=== PATIENT | female | born 1980 | race Caucasian/White ===

== ENCOUNTER 2016-06-05 04:12 | Inpatient (IN) | payer OTHER ==
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
--- OUTSIDE RECORDS SUMMARY | 2016-06-05 04:17 | XMS REPORT | Continuity of Care Document ---
:1980 Author Organization [facility] [place] [address] Care Team Providers Name Role Phone Unavailable Primary Care Provider Unavailable Source Comments This disclosure is being made pursuant to the [employer] program and maynot contain all information available regarding this patient.[facility] Active Allergies and Adverse Reactions Not on File Current Medications Be aware that medications may not be up to date as of this document. Alwaysverify current medications with the patient. Not on file Active Problems Not on file Social History Tobacco Use Types Packs/Day Years Used Date Never Assessed Plan of Care Health Maintenance Due Date Last Done Comments Retired-Pertussis Vaccine Adult 2001 Retired-Tetanus Vaccine Adult 2001 Pap Smear 12/23/2003 Retired-INFLUENZA VACCINE 11/22/2014 Results from Last 3 Months Not on file
--- OUTSIDE RECORDS SUMMARY | 2016-06-05 08:10 | XMS REPORT | Continuity of Care Document ---
:1980 Author Organization [facility] [place] [address] Care Team Providers Name Role Phone Unavailable Primary Care Provider Unavailable Source Comments This disclosure is being made pursuant to the [employer] program and maynot contain all information available regarding this patient.[facility] Active Allergies and Adverse Reactions Not on [...]
--- OUTSIDE RECORDS SUMMARY | 2016-06-05 08:10 | XMS REPORT | Continuity of Care Document ---
:1980 Author Organization [facility] ([facility]) Address [address] [place] [address] Phone [phone] Care Team Providers Name Role Phone Provider, No-Primary Care Primary Care Provider Unavailable Source Comments This disclosure is being made pursuant to the Care Everywhere program, applicable federal and state laws, and may not contain all informaitonavailable regarding this patient.[facility] ([facility]) Active Allergies and Adverse Reactions Allergen Noted [...] total) by mouth at bedtime. Pump Set [facility] Breast Pump. 1 Each 0 11/23/2014 05/21/2016 Discontinued 1 Device Daily Active Problems Patient Care Coordination Note GOALS OF CARE AND TREATMENT PREFERENCES Diagnosis: Seizures with possible intentional overdose Prognosis: Fair Goal(s) of Care: cure and determine what is wrong Is the patient an inpatient? Yes. How did the team arrive at the current code status? Discussion with patient's Silverio [phone] Code status is: Full code Patient able to make own decisions?: No Decision-maker: Next of kin: Silverio [phone] Patient's Goals of Care and communication style [...] contact the transfusion medicine resident at pager #[phone] with questions. 08/24/2014 Anemia, unspecified 08/24/2014 Epilepsy [...] Recent Encounters Date Type Specialty Providers Description 06/05/2016 Hospital Encounter Patient Services 05/26/2016 Hospital Encounter Whit Alves, Dx: Abdominal Specialty PROJECT MANAGER/DESIGN MANAGER cramping (Primary Isaiah Gross, Dx) DO 05/22/2016 Office Visit Maternal Tete Vasquez Dx: Disorder of Medicine DO abdominal Balka, [place], CGC region, not applicable or unspecified fetus (Primary Dx) 05/22/2016 Hospital Encounter Obstetrics Tete Vasquez Dx: Abnormal DO ultrasonic finding on screening of mother 05/22/2016 Office Visit Maternal Tete Vasquez, Dx: Medicine DO abnormality affecting management of [...] Taken Blood Pressure 125/86 05/26/2016 12:16 PM MOLDED GOODS INSPECTOR TRIMMER Pulse 92 05/26/2016 12:16 PM MOLDED GOODS INSPECTOR TRIMMER Temperature 36.8 C (98.2 F) 05/26/2016 10:06 AM MOLDED GOODS INSPECTOR TRIMMER Respiratory Rate 16 05/26/2016 12:16 PM MOLDED GOODS INSPECTOR TRIMMER Height 1.626 m (5' 4") 05/22/2016 2:57 PM MOLDED GOODS INSPECTOR TRIMMER Weight 124.4 kg (274 lb 4 oz) 05/22/2016 2:57 PM MOLDED GOODS INSPECTOR TRIMMER Body Mass Index 47.05 05/22/2016 2:57 PM MOLDED GOODS INSPECTOR TRIMMER Oxygen Saturation 98% 05/26/2016 12:16 PM MOLDED GOODS INSPECTOR TRIMMER Plan of Care Date Type Specialty Providers Description 06/11/2016 Appointment Obstetrics Chief Comp: Patient Reported Reason For Visit 06/11/2016 Appointment Maternal Chief Comp: Patient Medicine Reported Reason For Visit 06/11/2016 Appointment Maternal [facility], [facility] New Chief Comp: Patient Medicine Patient Reported Reason For Visit 04/10/2017 Appointment Psychiatry Javed Olmstead, FELIX Chief Comp: Patient [address] [place] [address] Visit [phone] (Fax) Health Maintenance Due Date Last Done [...] Completed 07/11/2014 Results from Last 3 Months [facility] BAS[facility]OL[facility] (W/ CALCIUM TOTAL) (05/26/2016 10:35 AM) Component Value Range [facility] Sodium 135(L) 137-145 mmol/L [facility] Potassium 4.3 3.4-5.1 mmol/L [facility] Chloride 108(H) 98-107 mmol/L [facility] CO2 19(L) 20-30 mmol/L [facility] Glucose 86 60-110 mg/dL [facility] BUN 6(L) 7-17 mg/dL [facility] Creatinine 0.41(L) 0.70-1.25 mg/dL [facility] Calcium 8.3(L) 8.4-10.5 mg/dL [facility] Calculated GFR >90 >60 mL/min/1.73 m2 Specimen Blood [facility] CBC WITH DIFFERENTIAL (05/26/2016 10:35 AM) [...] % Basophils 0.2 0.0-2.0 % Specimen Blood SENIOR TECHNICAL PROJECT MANAGER/ DIAGNOSIS ULTRASOUND (05/22/2016 2:48 PM) Narrative Obstetric Ultrasound Report Detailed Survey Referral from: Dr. Umu walker [address] Department of Obstetrics & Gynecology [place], [id number] [facility] [id number] OB Clinic IVF/ Endocrine PATIENT INFORMATION: Name: NURIS HILARIO#: [id number] Age:35 y/oExam Date: 05/22/2016 :1980 Visit #: [...] 36 6/7 wks(61%) (83%) Femur: 66.8 mm34 7 wksAC:330.2 mm 37 0/7 wks(87%) (46%) EFW: 2887 gms6 lbs 6 oz (84%) Lat Ventricles: 3.4 mm Cisterna Magna: 9.0 mm Nasal Bone: Present-13.7 mmFetal Heart Rate: 161 bpm FL/AC:0.2HL/BPD: 0.65 FL/BPD: 0.74 Humerus:59.0 mm34 1 (53%) PRESENTATION/CORD/PLACENTA/FLUID/CERVIX: Presentation: Breech Umbilical Cord: 3 Vessel Cord.Normal insertion into the placenta. Placenta: Anterior Amniotic Fluid: Maximum Vertical Jxggog=955 mm.Subjective AF Volume: Moderately Increased.Assessment: polyhydramnios. (VYG=633 mm) ANATOMICAL SURVEY: Normal ------ Lateral Ventricles Cerebellum Cisterna Magna Profile Nose Lips Cervical Spine Thoracic Spine Lumbar Spine Sacrum Four Chamber ViewAortic Arch Cardiac Morrice Cardiac Position Heart Rate Cardiac Rhythm DiaphragmVentral [...] SVC: Suboptimal Cardiac Rhythm:Normal Pericardial Effusion: Absent BUILDING ENERGY RETROFIT TECHNICIAN FINDINGS: Ovaries:Left:Normal Right: Normal EFW Summary Table Exam DateFetus #EFW Percentile ------ - 05/22/16 [id number] % AMNIOTIC FLUID VOLUME: POLYHYDRAMNIOSTotal MEG: 305 [...] allowing us to care for your patient, Nuris Hilraio. As you know, she is a 35 y.o. currently at 34w5d gestation.She has been referred due to a abdominal mass.Her is complicated by borderline personality disorder, hypothyroidism and depression. She declined serum screening.She presents to the Diagnosis and Treatment Unit at the [facility] today for detailed anatomic survey and MFM [...] recommend that the patient transfer care to [facility] and deliver at [facility]. The patient is very disappointed that delivery is recommended at [facility]. It was a pleasure seeing your patient [...] Vasquez MD ([id number]) Dr. Rabia Orellana MD Rug Cutter: Sophy Terrell RDMS, RVT Procedure Note Omar, Incoming Imaging Results - FriMay 24, 2016 4:19 PM MOLDED GOODS INSPECTOR TRIMMER Obstetric Ultrasound Report Detailed Survey Referral from: Dr. Umu Aldana [facility] [address] Department of Obstetrics &[place] [address] [address] [place], [id number] OB Clinic IVF/ Endocrine PATIENT INFORMATION: Name: NURIS HILARIO MR#: [id number] Age: 35 y/o Exam Date: 05/22/2016 : [...] placenta. Placenta: Anterior Amniotic Fluid: Maximum Vertical Mkyiid=197 mm. Subjective AF Volume: Moderately Increased. Assessment: polyhydramnios. (RVL=878 mm) ANATOMICAL SURVEY: Normal ------ Lateral Ventricles Cerebellum Cisterna Magna Profile Nose Lips Cervical Spine Thoracic Spine Lumbar Spine Sacrum Four Chamber View Aortic Arch Cardiac Morrice Cardiac Position Heart Rate Cardiac Rhythm Diaphragm [...] Suboptimal Cardiac Rhythm: Normal Pericardial Effusion: Absent BUILDING ENERGY RETROFIT TECHNICIAN FINDINGS: Ovaries: Left: Normal Right: Normal EFW Summary Table Exam Date Fetus # EFW Percentile --------- ------- ---- 05/22/16 1 2887 84 % AMNIOTIC FLUID VOLUME: POLYHYDRAMNIOS Total [...] allowing us to care for your patient, Nuris Hilario. As you know, she is a 35 y.o. currently at 34w5d gestation.She has been referred due to a abdominal mass. Her is complicated by borderline personality disorder, hypothyroidism and depression. She declined serum screening. She presents to the Diagnosis and Treatment Unit at the [facility] today for detailed anatomic survey and MFM [...] recommend that the patient transfer care to [facility] and deliver at [facility]. The patient is very disappointed that delivery is recommended at [facility]. It was a pleasure seeing your patient [...] Vasquez MD ([id number]) Dr. Rabia Orellana MD Rug Cutter: Sophy Terrell RDMS, RVT
[2016-06-05] MEDS ORDERED: RINGERS SOLUTION,LACTATED 1,000 ML IV PRN (08:24)
[2016-06-05] MEDS ORDERED: RINGERS SOLUTION,LACTATED 1,000 ML IV ONE (08:24)
[2016-06-05] MEDS ORDERED: LIDOCAINE HCL 50 ML VIAL PERI PRN (08:24)
[2016-06-05] MEDS ORDERED: DEXTROSE 5%-LACTATED RINGERS 1,000 ML IV PRN (08:24)
[2016-06-05 08:55] LABS: Hematocrit 33.9 % (37.0-47.0); Mean Corpuscular Hgb Conc 32.4 g/dl (32-36); Mean Platelet Volume 9.7 fl (6.0-9.5); Neutrophil # 10.4 K/mm3 (1.3-6.0); Neutrophil % 64.2 % (42-75.0); Platelet Count 296 K/mm3 (150-450); Red Cell Distribution Width 15.1 % (11.5-14.0); White Blood Count 16.1 K/mm3 (4.0-10.5)
--- NOTE | 2016-06-05 09:03 | PN ---
Progess Note - Interim Narrative: 06/05/16 08:57 Subjective-complaining of pain 4 out of 10 with regular contractions Objective- SVE- 4/80/-2, bulging bag of water, cephalic FHTs- 150s, moderate variability, no decelerations [place]- every 2-3 minutes Assessment and plan- Labor-spontaneous, GBS status- negative Elevated blood pressures -obtain labs and monitor for signs and symptoms of preeclampsia or worsening blood pressures Continue current plan of care. Anticipate . Prepare for a hemorrhage and retained placenta.
[2016-06-05] MEDS ORDERED: BUPIVACAINE HCL/PF 30 ML VIAL ONE (09:08)
[2016-06-05 09:14] LABS: Albumin * 2.5 gm/dl (3.4-5.0); Anion Gap 14.7 mmol/L (6.8-13.8); BUN/Creatinine Ratio 15.6 (9.0-21.6); Bilirubin, Total 0.3 mg/dL (0.0-1.1); Ca. Corrected For Albumin 9.5 mg/dL (8.4-10.2); Calcium * 8.6 mg/dL (7.9-10.9); Carbon Dioxide 21.2 mmol/L (24-32.6); Potassium 3.9 mmol/L (3.4-4.6)
[2016-06-05] MEDS ORDERED: NALOXONE HCL 1 MG/1 ML SYRG IV PRN (09:35)
[2016-06-05] MEDS ORDERED: ONDANSETRON HCL/PF 2 MG/ML VIAL IV PRN (09:35)
[2016-06-05] MEDS ORDERED: BUPIVACAINE HCL/0.9 % NACL/PF 250 ML EP PRN (09:35)
[2016-06-05] MEDS ORDERED: BUPIVACAINE HCL/PF 30 ML VIAL EP ONE (09:35)
--- NOTE | 2016-06-05 09:44 | OR ---
Anesthesia Procedure Note - Anesthesia Procedure Note Date of Service: 06/05/16 Narrative: Vital Signs - Last Taken Temp 36.8 C 10/27/13 06:15 Pulse 74 06/05/16 09:37 Resp 18 06/05/16 09:37 BP 108/73 06/05/16 09:37 Pulse Ox 98 06/05/16 09:37 06/05/16 09:41 ANESTHESIA PROCEDURE NOTE Date of Procedure: 06/05/2016. Time of procedure: 1010.. Performed by: Pablito Mancuso CRNA Time Broker: None. Preprocedure diagnosis: Active labor. Post procedure diagnosis: Same. Procedure: Insertion of labor epidural. Indications: The patient is a 35 -year-old female in active labor requesting labor epidural for pain management. Findings: See below. Details of the procedure: The patient was placed in a sitting position. DuraPrep as well as Betadine swabs 3 was applied to the patient's back. Patient was then draped in a sterile fashion. Lidocaine 1% was infiltrated to the skin and subcutaneous tissues at the level of the L3 4 interspace. The epidural space was identified using a 18-gauge Tuohy needle with loss-of- resistance technique. Epidural catheter was inserted to a depth of 10 centimeters at skin. Negative test dose was elicited using 3 mL of 1.5% preservative-free lidocaine plus epinephrine 1 200,000. The epidural catheter was then taped and secured in place. A loading dose of 8 mL of 0.25% preservative-free bupivacaine was administered to the epidural catheter after negative aspiration for blood and CSF. EBL: Minimal. Fluids: N/A. Specimen: N/A. Post procedure condition: The patient tolerated the procedure well. No complications were noted. Thank you for this consultation. Pablito Mancuso CRNA
[2016-06-05] MEDS: OXYTOCIN/DEXTROSE 5%-WATER 30 UNITS/500 ML BAG IV ONE ×2 (10:09→17:06)
[2016-06-05] MEDS: MISOPROSTOL 200 MCG TABLET RC ONE ×2 (15:03→17:13)
[2016-06-05] MEDS ORDERED: oxyCODONE HCL/ACETAMINOPHEN 1 TAB TABLET PO PRN (15:23)
[2016-06-05] MEDS ORDERED: OXYTOCIN/DEXTROSE 5%-WATER 30 UNITS/500 ML BAG IV ONE (15:23)
[2016-06-05] MEDS ORDERED: BENZOCAINE/MENTHOL 81 SPRAY CAN TP PRN (15:23)
[2016-06-05] MEDS ORDERED: BISACODYL 10 MG SUPP.RECT RC PRN (15:23)
[2016-06-05] MEDS ORDERED: GLYCERIN/WITCH HAZEL LEAF 40 APPL BOX TP PRN (15:23)
[2016-06-05] MEDS ORDERED: HYDROCORTISONE 30 APPL TUBE TP PRN (15:23)
[2016-06-05] MEDS ORDERED: SENNOSIDES 8.6 MG TABLET PO PRN (15:23)
--- NOTE | 2016-06-05 15:46 | OR ---
Operative Report - Dictated Report Narrative: Spontaneous Vaginal Delivery Viable female with APGARS of 8 at 1 minute and 9 at 5 minutes. A copious amount of lightly meconium-stained fluid was noted during the labor and delivery. She delivered at 1455. Presentation was PAPO. Delivered after 2 pushes. A loose nuchal cord was reduced after delivery of the head. The right anterior shoulder delivered easily followed by the posterior shoulder and the remainder of the baby. The cord was then clamped and cut and the baby was taken to the warmer. Spontaneous cry was noted. The investor relations director arrived after approximately 1 minute. Weight: 7 pounds and 7 ounces or 3374 g Placenta was delivered spontaneously and intact. It appeared to be meconium- stained. No lacerations were noted. Estimated blood loss: 300 ml episodes of brisk bleeding were noted and Cytotec 1000 g was placed rectally Mother and baby tolerated delivery well.
[2016-06-05] MEDS: oxyCODONE HCL/ACETAMINOPHEN 1 TAB TABLET PO PRN ×2 (17:03→21:50)
[2016-06-05] MEDS: IBUPROFEN 800 MG TABLET PO PRN (17:04)
[2016-06-05] MEDS: DOCUSATE SODIUM 100 MG CAPSULE PO SCH (21:50)
[2016-06-06] MEDS: IBUPROFEN 800 MG TABLET PO PRN (04:24)
[2016-06-06] MEDS: oxyCODONE HCL/ACETAMINOPHEN 1 TAB TABLET PO PRN ×2 (04:24→08:52)
[2016-06-06 08:40] VITALS: BP 95/54
[2016-06-06] MEDS: DOCUSATE SODIUM 100 MG CAPSULE PO SCH (08:53)
--- NOTE | 2016-06-06 08:55 | PN ---
Progess Note - Interim Narrative: 06/06/16 08:39 progress note Subjective: The patient is doing well. She is ambulating, voiding, tolerating by mouth. She has minimal pain and moderate lochia. Objective: General: No acute distress Abdomen: Soft, nontender, fundus is firm just below the umbilicus Extremities: minimal edema, nontender to palpation Assessment and plan: day 1 Feeding: Pumping but plans to breast-feed when she is with her baby Pain: Controlled with by mouth medication control: None Discharge home so she can be with her baby in [place]
== END 2016-06-06 09:55 | disposition home or self-care (01) | DRG 775 ==
LOC: OBCLINIC 04:12 → OB 08:05
PROVIDERS: ADMIT Obstetrics & Gynecology Gynecologic Oncology; ATTEND Obstetrics & Gynecology Gynecologic Oncology
PROC: 10E0XZZ Delivery of Products of Conception, External Approach (ICD-10-PCS; principal; 2016-06-05)
PROC: 4A1HXCZ Monitoring of Products of Conception, Cardiac Rate, External Approach (ICD-10-PCS; 2016-06-05)
PROC: 3E0S3CZ (ICD-10-PCS; 2016-06-05)
DX: O13.3 Gestational [pregnancy-induced] hypertension without significant proteinuria, third trimester (principal); Z68.42 Body mass index [BMI] 45.0-49.9, adult; O69.81X0 Labor and delivery complicated by cord around neck, without compression, not applicable or unspecified; O77.0 Labor and delivery complicated by meconium in amniotic fluid; O36.8930 Maternal care for other specified fetal problems, third trimester, not applicable or unspecified; F60.3 Borderline personality disorder; F32.9 Major depressive disorder, single episode, unspecified; E03.9 Hypothyroidism, unspecified; O99.214 Obesity complicating childbirth; E66.01 Morbid (severe) obesity due to excess calories; Z3A.37 37 weeks gestation of pregnancy; Z37.0 Single live birth